=== PATIENT | female | born 1935 | race Caucasian/White ===

== ENCOUNTER 2019-07-08 11:39 | Outpatient (CLI) | payer MEDICARE, OTHER, SELFPAY ==
--- NOTE | 2019-07-11 06:57 | ONC FU_ITS ---
Dr. Bowers Patient Follow-Up Note Patient: Isela Marina Unit #: [id number]: 1935 Dicatated By: Dakota Bowers M.D.Date of Visit:July 08, 2019 Onc Med Follow-up/Prog Note Chief Complaint: Breast cancer. 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 She had presented in 2011 with a palpable mass in the central portion of the left breast. Incisional biopsy on 01/15/2012 showed grade 2 invasive ductal carcinoma. It was reported to be ER and DE positive. HER-2/raghavendra was non-amplified with an amplification ratio by FISH of 1.17. She underwent partial mastectomy, left axillary sentinel lymph node biopsy and additional axillary lymph node sampling on 01/29/2012. Pathology showed grade 2 invasive ductal carcinoma with focal ductal carcinoma in situ. The tumor measured 4.4 cm in greatest dimension. Tumor was noted to invade the dermis but not epidermis. There was macroscopic involvement in 2/2 sentinel lymph nodes but without extracapsular extension. There was no involvement in an additional 6 axillary lymph nodes. Her Oncotype DX score was 19. Adjuvant chemotherapy was not given. She did complete radiation to the left breast in February 2012. She then began adjuvant hormonal therapy with letrozole. She had continued regular followup with her surgeon and with her medical oncologist prior to moving here from [place]. I had seen here initially on 02/08/2016. At that time she had multiple complaints including fatigue and increasing musculoskeletal pain. I had suspected that at least some of those symptoms were related to the letrozole, and I did advise her to stop taking it, at least temporarily. I had then seen her for a followup visit on 03/06/2015. At that time she reported some improvement in her musculoskeletal pain, but she continued to have fatigue and she also complained of increased shortness of breath. She was advised to continue holding the letrozole, and she was scheduled for further evaluation with a ventilation/perfusion lung scan, as she had a reported IV contrast allergy. The lung scan showed intermediate probability of pulmonary embolus. At that time she was on warfarin due to a prior history of pulmonary emboli in 2001. Her anticoagulation was then transitioned to apixaban. As her musculoskeletal pain had improved after stopping the letrozole, she was recommended to start treatment with exemestane 25 mg daily. She received the medication, but for some reason she decided to restart the letrozole instead. In the meantime, her diagnostic left mammogram and ultrasound on 07/31/2016 showed evidence of a new soft tissue skin thickening in the inferior medial left breast. Ultrasound also showed soft tissue thickening along the 9 to 10:00 axis of the left breast near the scar from the prior lumpectomy. The thickening measures up to 4.7 mm. The findings were BI-RADS 4B, moderate suspicion for malignancy. Biopsy was recommended. She underwent left breast lumpectomy on 08/16/2016. Pathology was benign. She subsequently did start the exemestane, but she stopped it within a month or so because of side effects, mainly a skin eruption and itching. Following her office visit on 11/09/2016, she did agree to restart the exemestane 25 mg daily. She has not continued it until April 2018, at which point she had completed 5 years of adjuvant hormonal therapy. Her medical illnesses, in addition to breast cancer and pulmonary emboli, include hypertension, hyperlipidemia, type II diabetes, GERD, fibromyalgia, osteoporosis, and macular degeneration. She is on CPAP for obstructive sleep apnea. She also has anxiety/depression. She has had multiple skin cancers excised. She is a nonsmoker. INTERIM HISTORY: She is seen for a scheduled visit. She has not been feeling is good generally. She says she has slowed down and has not been as active. At least some of that is due to the restrictions imposed by the coronavirus pandemic. She is still the primary caregiver for her , and she does her housework. ECOG score is 1. She has been watching her diet because of her diabetes. Her weight, though, is up a few pounds. She has not had fever, night sweats, or hot flashes. Her breathing is generally good. She does get short of breath going up stairs. She does not complain of cough, and she has not been having chest pain. She says her stomach is occasionally queasy. She has constipation, which she manages adequately with Metamucil and docusate. She has increasing problems with bladder incontinence. She has pain in her left knee and she also has having joint pain in her thumbs and ankles. She has some pain in the left chest wall, which tends to be positional. She has burning and hurting in her legs at night, she also complains of having tingling in her feet. She does not complain of headache. She sometimes has vertigo. Medications: Acetaminophen 2 (500 mg) Tablet Oral PRN, Cholecalciferol 1 (1000 Units) Tablet Oral daily, Claritin 1 (10 mg) Capsule Oral daily, Colace (100 mg) Capsule Oral daily, DiltiaZEM HCl ER 1 (60 mg) Capsule SR 12 HR Oral b.i.d., Eliquis 1 (5 mg) Tablet Oral b.i.d., Flonase 2 (50 mcg/act) Suspension Nasal daily PRN, HydrALAZINE HCl 1 (100 mg) Tablet Oral t.i.d., HydroCHLOROthiazide 1 (25 mg) Tablet Oral daily, Klor-Con 10 1 (10 meq) Tablet, controlled release Oral b.i.d., Magnesium 1 Tablet Oral at bedtime, Meclizine HCl Tablet Oral PRN, Naphcon-A 2 Solution Ophthalmic b.i.d., Ocuvite 1 Tablet Oral daily Allergies: Cats, Diovan, Dust mites, Fenofibrate, Fish Oil, Floxin Otic, Gabapentin, Hydrocodone-Acetaminophen, Ibuprofen, Iodine, Lipitor, Pravastatin Sodium, Simvastatin, Statins, and Tolectin. 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 Appetite is OK. She is trying to watch her diet for the diabetes. Her weight is up a few pounds. No fever, chills, hot flashes, or night sweats. ECOG score is 1, ENMT - She was treated for a sinus infection in February. No mouth sores. No sore throat or difficulty swallowing, Hematologic/Lymphatic - No abnormal bruising or bleeding, Respiratory - She wears a CPAP at night. She has shortness of breath going up stairs. No cough. No pleuritic pain or hemoptysis, Cardiovascular - No angina pain. No palpitations, Gastrointestinal - She occasinally feels queasy. She sometimes has heartburn. She has constipation, adequately managed with Metamucil and docusate. No blood in the stool or black stools, Genitourinary (F) - She has urinary frequency and she is having more incontinence. No dysuria or hematuria, Musculoskeletal - She has pain in her left knee. She also has pain in her thumbs and in her ankles. She has some pain in the left chest wall which tends to be positional, Integumentary - No skin complications, Neurologic - No headache. She sometimes has vertigo. She has numbness and burning in her legs and feet, Psychiatric - She has some anxiety/depresssion. She has some difficulty sleeping. Vital Signs: Performed on July 08, 2019 10:58 Height - 63.00 in Weight - 192 lbs (HIGH) BSA - 1.90 sq.m BMI - 34.01 (HIGH) Temperature - 97.8 F (LOW) Pulse - 89 /min Respiration - 19 /min BP - 132/68 mm(hg) O2 Sat - 97 % Pain - 2 Physical Examination: Constitutional - She appears somewhat weak generally, and she has limited mobility, Eyes - Sclerae nonicteric. Conjunctivae clear, ENMT - No lesions noted in the oral cavity, Hematologic/Lymphatic - No cervical or clavicular adenopathy, Respiratory - Lungs sound clear, Cardiovascular - Heart rhythm is regular. There is a II/ systolic murmur. There is no gallop or rub noted, Breasts - She has had a partial left mastectomy. There are no breast masses noted. There is no axillary adenopathy, Abdomen - Soft. Liver and spleen are not enlarged. There is no abdominal mass or ascites noted and there is no inguinal adenopathy, Extremities - No edema. Pedal pulses are palpable bilaterally, Integumentary - There are multiple actinic lesions on the forearms, Neurologic - No focal neurologic deficits noted. Lab/Imaging: Test performed on July 08, 2019 09:52 Glucose 130 mg/dL BUN 20 mg/dL Creatinine 0.85 mg/dL Cr Clearance (Est) 67.74 mL/min Sodium 142 mmol/L Potassium 4.1 mmol/L Chloride 101 mmol/L CO2 30 mmol/L Calcium 10.8 mg/dL Protein, Total 7.2 g/dL Albumin 4.2 g/dL Bilirubin, Total 0.3 mg/dL Alkaline Phosphatase 94 IU/L AST (SGOT) 15 IU/L ALT (SGPT) 13 IU/L Impression: 1. Patient with grade 2 invasive ductal carcinoma involving the central aspect of the left breast, stage IIB (pT2, pN1a, M0), ER/DE positive and HER-2/raghavendra negative. Oncotype DX score 19. 2. Her treatment included left partial mastectomy and axillary lymph node sampling on 01/29/2012 followed by radiation to the left breast, which she completed in February 2012. 3. She began adjuvant hormonal therapy with letrozole following completion of radiation. It was stopped in January 2016 due to increasing musculoskeletal pain and fatigue. Her other medical illnesses include: 4. Hypertension. 5. Hyperlipidemia. 6. Type II diabetes. 7. GERD. 8. Fibromyalgia. 9. Osteoporosis. 10. Macular degeneration. 11. Obstructive sleep apnea. 12. She has required treatment for multiple skin cancers. 13. She has a history of multiple pulmonary emboli in 2001. During subsequent followup she had improvement in her musculoskeletal pain after stopping letrozole. She had initially continued to have significant fatigue and shortness of breath. She was evaluated with a ventilation/perfusion lung scan in February 2016, and that study showed intermediate probability of pulmonary embolus. She had a therapeutic INR on warfarin, and at that point her anticoagulation was transitioned to apixaban 5 mg bid. She had improvement in her musculoskeletal pain after stopping letrozole. Her surveillance mammogram/ultrasound of left breast on 07/31/2016 was BI-RADS 4b, moderate suspicion for malignancy. She underwent left breast lumpectomy on 08/16/2016. Pathology was benign. She then began a trial hormonal therapy with exemestane 25 mg daily. She stopped within a month or so due to side effects, mainly a skin eruption and itching. She did agree to restart the exemestane following her office visit in October 2016. She had subsequently been able to tolerate the exemestane with acceptable toxicity. I did have her stop taking it in April 2018, at which point she had completed 5 years of adjuvant hormonal therapy. Since then she has been showing some decline in her performance status. 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 There has, however, but no evidence of recurrence of the breast cancer, and she has had no evidence of any further thromboembolism. Plan: She continues on observation/expectant management for the breast cancer. Due to her having had a partial mastectomy, she is in need of post mastectomy bras and prosthesis. She is overdue on her surveillance mammogram, and that also will be scheduled. I will see her again in 1 year. Signed By: Dakota Bowers M.D. <<Signature on File>>
== END 2019-07-08 11:40 | disposition home or self-care (01) ==
LOC: ONCMED 11:40
PROVIDERS: PCP Family Medicine; Visit Provider Internal Medicine Medical Oncology
DX: Z08 Encounter for follow-up examination after completed treatment for malignant neoplasm (principal); Z85.3 Personal history of malignant neoplasm of breast; Z90.12 Acquired absence of left breast and nipple; Z92.23 Personal history of estrogen therapy; Z86.711 Personal history of pulmonary embolism; Z79.01 Long term (current) use of anticoagulants; Z85.828 Personal history of other malignant neoplasm of skin; I10 Essential (primary) hypertension; E78.5 Hyperlipidemia, unspecified; E11.9 Type 2 diabetes mellitus without complications; K21.9 Gastro-esophageal reflux disease without esophagitis; M79.7 Fibromyalgia; M81.0 Age-related osteoporosis without current pathological fracture; G47.33 Obstructive sleep apnea (adult) (pediatric); H35.30 Unspecified macular degeneration
CPT/HCPCS: 99214

== ENCOUNTER 2019-07-22 10:26 | Outpatient (CLI) | payer MEDICARE, OTHER, SELFPAY ==
--- NOTE | 2019-07-22 10:32 | MM_ITS ---
WS: [id number] DIAGNOSTIC BILATERAL DIGITAL MAMMOGRAM WITH CAD HISTORY: HX OF BREAST CA COMPARISON: 06/06/2018 and 01/31/2017 TECHNIQUE: Bilateral craniocaudad, mediolateral oblique, and mediolateral views are submitted. Comput er aided detection utilized. Breast composition: There are scattered areas of fibroglandular density. Numerous calcifications thro ughout the anterior LEFT breast have increased over time. There is a cluster of calcifications in the medial inferior LEFT breast which needs further evaluation. Some of the calcifications within the br east are benign in appearance as they are rodlike. Cluster of calcifications near 5:00 are more pleom orphic. These could be dystrophic calcifications as they are close to the prior surgical site. RIGHT breast is negative. LEFT BREAST: Magnification views of suspicious calcification CC and MLO. True ML. MM/[place] [id number] IMPRESSION: BI-RADS: 0-Incomplete: Need additional imaging evaluation FOLLOW UP: Need Additional Imaging
== END 2019-07-22 10:27 | disposition home or self-care (01) ==
LOC: RADSHAW 10:30
PROVIDERS: PCP Family Medicine; Visit Provider Family Medicine
DX: Z85.3 Personal history of malignant neoplasm of breast (principal); R92.1 Mammographic calcification found on diagnostic imaging of breast
CPT/HCPCS: 77066

== ENCOUNTER 2019-08-05 09:18 | Outpatient (CLI) | payer MEDICARE, OTHER, SELFPAY ==
--- NOTE | 2019-08-05 09:32 | MM_ITS ---
WS: [id number] LEFT DIGITAL MAMMOGRAPHY WITH CAD CLINICAL INFORMATION: LT BREAST CALCIFICATION HISTORY: History of left breast cancer with radiation and lumpectomy. COMPARISON: July 22, 2019 TECHNIQUE: 3 views of the left breast were obtained. FINDINGS: Scattered fibroglandular densities of the left breast. Prior postoperative changes inferior medial le ft breast with lumpectomy and radiation therapy. Again seen are the increasing calcifications along t he prior lumpectomy site. Calcifications have an amorphous and heterogeneous appearance and have sign ificantly increased since June 06, 2018. Some of the calcifications are likely due to postoperative changes with fat necrosis however others are pleomorphic in appearance and indeterminant. Recommend f urther evaluation with ultrasound-guided biopsy. Secretory calcifications. Vascular calcifications. Stable punctate and lucent centered calcifications . Stable biopsy clip. MM/[place] [id number] IMPRESSION: BI-RADS: 4B-Suspicious: Intermediate FOLLOW UP: Stereotactic Biopsy Recommended
== END 2019-08-05 09:19 | disposition home or self-care (01) ==
LOC: ONCMED 09:26
PROVIDERS: PCP Family Medicine; Visit Provider Internal Medicine Medical Oncology
DX: R92.1 Mammographic calcification found on diagnostic imaging of breast (principal)
CPT/HCPCS: 77065

== ENCOUNTER 2019-08-13 12:05 | Outpatient (CLI) | payer MEDICARE, OTHER, SELFPAY ==
--- NOTE | 2019-08-13 12:15 | MM_ITS ---
WS: [id number] ULTRASOUND-GUIDED LEFT BREAST BIOPSY HISTORY: New LEFT breast calcifications at the postsurgical lumpectomy site. COMPARISON: 06/06/2018, 08/05/2019, 07/22/2019, 06/06/2018 and 01/31/2017. Examination was initially attempted by stereotactic biopsy. Due to patient's kyphotic condition these calcifications were not identifiable. Ultrasound was able to localize calcifications in the location of the abnormality and will be attempted. Procedure, risks and complications are explained to the patient. Medications are reviewed. Consent is obtained. The calcifications in the LEFT breast are localized with ultrasound. Skin is cleansed with ChloraPrep and anesthetized with 1% buffered lidocaine. Small dermatome is made. Under sterile conditions the s ite of the calcifications is biopsied with a 14-gauge Achieve needle. Multiple core biopsies are perf ormed. Material placed in formalin and sent to pathology for review. No complications encountered. Breast tissue marker (Bard ultrasound enhanced ribbon): Single. Patient left the radiology suite with no complications. Patient is instructed to return to [facility] or [facility] with any concerns. Post mammographic imaging to evaluate placement of the clip was obtained. The clip is within the area of the concerning calcifications. MM/[place] [id number] IMPRESSION: 1. Uncomplicated core needle biopsy calcifications LEFT breast which are new. PATHOLOGY: Fat necrosis with microcalcifications. No malignancy. RECOMMENDATION: Diagnostic LEFT mammogram 6 months.
[2019-08-13 13:10] LABS: INR 0.95 (0.8-1.2)
--- NOTE | 2019-08-13 13:42 | US_ITS ---
WS: [id number] ULTRASOUND-GUIDED LEFT BREAST BIOPSY HISTORY: New LEFT breast calcifications at the postsurgical lumpectomy site. COMPARISON: 06/06/2018, 08/05/2019, 07/22/2019, 06/06/2018 and 01/31/2017. Examination was initially attempted by stereotactic biopsy. Due to patient's kyphotic condition these calcifications were not identifiable. Ultrasound was able to localize calcifications in the location of the abnormality and will be attempted. Procedure, risks and complications are explained to the patient. Medications are reviewed. Consent is obtained. The calcifications in the LEFT breast are localized with ultrasound. Skin is cleansed with ChloraPrep and anesthetized with 1% buffered lidocaine. Small dermatome is made. Under sterile conditions the s ite of the calcifications is biopsied with a 14-gauge Achieve needle. Multiple core biopsies are perf ormed. Material placed in formalin and sent to pathology for review. No complications encountered. Breast tissue marker (Bard ultrasound enhanced ribbon): Single. Patient left the radiology suite with no complications. Patient is instructed to return to [facility] or [facility] with any concerns. Post mammographic imaging to evaluate placement of the clip was obtained. The clip is within the area of the concerning calcifications. US/US breast LT limited* [id number] IMPRESSION: 1. Uncomplicated core needle biopsy calcifications LEFT breast which are new. PATHOLOGY: Fat necrosis with microcalcifications. No malignancy. RECOMMENDATION: Diagnostic LEFT mammogram 6 months.
--- NOTE | 2019-08-13 14:07 | US_ITS ---
WS: [id number] ULTRASOUND-GUIDED LEFT BREAST BIOPSY HISTORY: New LEFT breast calcifications at the postsurgical lumpectomy site. COMPARISON: 06/06/2018, 08/05/2019, 07/22/2019, 06/06/2018 and 01/31/2017. Examination was initially attempted by stereotactic biopsy. Due to patient's kyphotic condition these calcifications were not identifiable. Ultrasound was able to localize calcifications in the location of the abnormality and will be attempted. Procedure, risks and complications are explained to the patient. Medications are reviewed. Consent is obtained. The calcifications in the LEFT breast are localized with ultrasound. Skin is cleansed with ChloraPrep and anesthetized with 1% buffered lidocaine. Small dermatome is made. Under sterile conditions the s ite of the calcifications is biopsied with a 14-gauge Achieve needle. Multiple core biopsies are perf ormed. Material placed in formalin and sent to pathology for review. No complications encountered. Breast tissue marker (Bard ultrasound enhanced ribbon): Single. Patient left the radiology suite with no complications. Patient is instructed to return to [facility] or [facility] with any concerns. Post mammographic imaging to evaluate placement of the clip was obtained. The clip is within the area of the concerning calcifications. US/[place] [id number] IMPRESSION: 1. Uncomplicated core needle biopsy calcifications LEFT breast which are new. PATHOLOGY: Fat necrosis with microcalcifications. No malignancy. RECOMMENDATION: Diagnostic LEFT mammogram 6 months.
== END 2019-08-13 12:06 | disposition home or self-care (01) ==
LOC: RADSHAW 12:15 → ONCMED 12:28
PROVIDERS: PCP Family Medicine; Visit Provider Internal Medicine Medical Oncology
DX: N64.1 Fat necrosis of breast (principal); Z85.3 Personal history of malignant neoplasm of breast; R92.0 Mammographic microcalcification found on diagnostic imaging of breast; R92.1 Mammographic calcification found on diagnostic imaging of breast; N63.20 Unspecified lump in the left breast, unspecified quadrant
CPT/HCPCS: 19083; 36415; 76642; 77065; 85610; 88305; J2001

== ENCOUNTER 2019-09-08 09:49 | Outpatient (CLI) | payer MEDICARE, OTHER, SELFPAY ==
--- NOTE | 2019-09-08 19:04 | ONC FU_ITS ---
Dr. Bowers Patient Follow-Up Note Patient: Isela Marina Unit #: [id number]: 1935 Dicatated By: Dakota Bowers M.D.Date of Visit:Sep 08, 2019 Onc Med Follow-up/Prog Note Chief Complaint: Breast cancer. 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 She had presented in 2011 with a palpable mass in the central portion of the left breast. Incisional biopsy on 01/15/2012 showed grade 2 invasive ductal carcinoma. It was reported to be ER and [place] positive. HER-2/raghavendra was non-amplified with an amplification ratio by FISH of 1.17. She underwent partial mastectomy, left axillary sentinel lymph node biopsy and additional axillary lymph node sampling on 01/29/2012. Pathology showed grade 2 invasive ductal carcinoma with focal ductal carcinoma in situ. The tumor measured 4.4 cm in greatest dimension. Tumor was noted to invade the dermis but not epidermis. There was macroscopic involvement in 2/2 sentinel lymph nodes but without extracapsular extension. There was no involvement in an additional 6 axillary lymph nodes. Her Oncotype DX score was 19. Adjuvant chemotherapy was not given. She did complete radiation to the left breast in February 2012. She then began adjuvant hormonal therapy with letrozole. She had continued regular followup with her surgeon and with her medical oncologist prior to moving here from [place]. I had seen here initially on 02/08/2016. At that time she had multiple complaints including fatigue and increasing musculoskeletal pain. I had suspected that at least some of those symptoms were related to the letrozole, and I did advise her to stop taking it, at least temporarily. I had then seen her for a followup visit on 03/06/2015. At that time she reported some improvement in her musculoskeletal pain, but she continued to have fatigue and she also complained of increased shortness of breath. She was advised to continue holding the letrozole, and she was scheduled for further evaluation with a ventilation/perfusion lung scan, as she had a reported IV contrast allergy. The lung scan showed intermediate probability of pulmonary embolus. At that time she was on warfarin due to a prior history of pulmonary emboli in 2001. Her anticoagulation was then transitioned to apixaban. As her musculoskeletal pain had improved after stopping the letrozole, she was recommended to start treatment with exemestane 25 mg daily. She received the medication, but for some reason she decided to restart the letrozole instead. In the meantime, her diagnostic left mammogram and ultrasound on 07/31/2016 showed evidence of a new soft tissue skin thickening in the inferior medial left breast. Ultrasound also showed soft tissue thickening along the 9 to 10:00 axis of the left breast near the scar from the prior lumpectomy. The thickening measures up to 4.7 mm. The findings were BI-RADS 4B, moderate suspicion for malignancy. Biopsy was recommended. She underwent left breast lumpectomy on 08/16/2016. Pathology was benign. She subsequently did start the exemestane, but she stopped it within a month or so because of side effects, mainly a skin eruption and itching. Following her office visit on 11/09/2016, she did agree to restart the exemestane 25 mg daily. She has not continued it until April 2018, at which point she had completed 5 years of adjuvant hormonal therapy. Her medical illnesses, in addition to breast cancer and pulmonary emboli, include hypertension, hyperlipidemia, type II diabetes, GERD, fibromyalgia, osteoporosis, and macular degeneration. She is on CPAP for obstructive sleep apnea. She also has anxiety/depression. She has had multiple skin cancers excised. She is a nonsmoker. INTERIM HISTORY: As of her follow-up visit on 07/08/2019 she appeared stable clinically with no evidence of recurrence of the breast cancer. Her yearly diagnostic mammogram on 07/22/2019 showed numerous calcifications throughout the anterior left breast which are noted to have increased over time. It was felt that a cluster of calcifications in the medial inferior left breast required further evaluation. She ultimately underwent ultrasound directed needle biopsy of that area on 08/13/2019. Pathology showed fat necrosis with microcalcifications but no malignancy identified. However, the radiologist indicated that it was a difficult procedure and that she was not confident that the biopsy result was an accurate reflection of the actual pathology in the breast. She has since then been seen by Dr. Gaston and she is considering the possibility of having a surgical biopsy. She complains that she is more tired, but she is still trying to do everything on her own, including maintaining her household and taking care of her . Her ECOG score is 1. Appetite is still okay. She does not have fever or night sweats. She says she had another fall on 20 August. It was associated with an episode of vertigo , which has been an ongoing problem for her for years, though she has atypical manifestations with it. She said she hit her head twice and also hurt her shoulders and back. Her pain is better now, so that she did not appear to have sustained any significant injury. She still complains of having pain occasionally in the area under her left breast, and that tends to be positional and has also been an ongoing problem for her. Medications: Acetaminophen 2 (500 mg) Tablet Oral PRN, Cholecalciferol 1 (1000 Units) Tablet Oral daily, Claritin 1 (10 mg) Capsule Oral daily, Colace (100 mg) Capsule Oral daily, DiltiaZEM HCl ER 1 (60 mg) Capsule SR 12 HR Oral b.i.d., Eliquis 1 (5 mg) Tablet Oral b.i.d., Flonase 2 (50 mcg/act) Suspension Nasal daily PRN, HydrALAZINE HCl 1 (100 mg) Tablet Oral t.i.d., HydroCHLOROthiazide 1 Tablet (of 12.5 mg) Oral daily, Klor-Con 10 1 (10 meq) Tablet, controlled release Oral b.i.d., Magnesium 1 Tablet Oral at bedtime, Meclizine HCl Tablet Oral PRN, Naphcon-A 2 Solution Ophthalmic b.i.d., Ocuvite 1 Tablet Oral daily Allergies: Cats, Diovan, Dust mites, Fenofibrate, Fish Oil, Floxin Otic, Gabapentin, Hydrocodone-Acetaminophen, Ibuprofen, Iodine, Lipitor, Pravastatin Sodium, Simvastatin, Statins, and Tolectin. Review of Systems: Constitutional - She is feeling really tired. 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 Her appetite is good and weight is stable. No fever, night sweats, or hot flashes. ECOG score is 1, ENMT - She has sinus congestion/drainage. No mouth sores. No sore throat or difficulty swallowing, Hematologic/Lymphatic - She bruises easily, Respiratory - No shortness of breath. No cough. No pleuritic pain or hemoptysis, Cardiovascular - No angina pain. No palpitations, Gastrointestinal - No nausea or vomiting. No heartburn or acid reflux. No diarrhea or constipation. No blood in the stool or black stools, Genitourinary (F) - No dysuria or hematuria. No urinary frequency. No urgency. She has incontinence, Musculoskeletal - She continues to have intermittent pain to her left rib area, Integumentary - No skin complications, Neurologic - No headaches. She is having increased difficulty with vertigo. She is very off balance and has had multiple falls. She has numbness and tingling in her feet, Psychiatric - She has some anxiety. No depression. No insomnia. Vital Signs: Performed on Sep 08, 2019 10:05 Height - 63.00 in Weight - 192.4 lbs (HIGH) BSA - 1.90 sq.m BMI - 34.08 (HIGH) Temperature - 98.3 F (LOW) Pulse - 70 /min Respiration - 24 /min BP - 143/69 mm(hg) (HIGH) O2 Sat - 96 % Pain - 0 Physical Examination: Constitutional - She has limited mobility, Eyes - Sclerae nonicteric. Conjunctivae clear, ENMT - No lesions noted in the oral cavity, Hematologic/Lymphatic - No cervical or clavicular adenopathy, Respiratory - Lungs sound clear, Cardiovascular - Heart rhythm is regular. There is a II/ systolic murmur. There is no gallop or rub noted, Breasts - She has had a partial left mastectomy. There are no breast masses noted. There is no axillary adenopathy, Abdomen - Soft. Liver and spleen are not enlarged. There is no abdominal mass or ascites noted and there is no inguinal adenopathy, Extremities - No edema. Pedal pulses are palpable bilaterally, Neurologic - No focal neurologic deficits noted. Lab/Imaging: Test performed on Aug 13, 2019 12:53 PT 12.90 SECONDS INR 0.95 Test performed on July 08, 2019 09:52 Glucose 130 mg/dL BUN 20 mg/dL Creatinine 0.85 mg/dL Cr Clearance (Est) 67.74 mL/min Sodium 142 mmol/L Potassium 4.1 mmol/L Chloride 101 mmol/L CO2 30 mmol/L Calcium 10.8 mg/dL Protein, Total 7.2 g/dL Albumin 4.2 g/dL Bilirubin, Total 0.3 mg/dL Alkaline Phosphatase 94 IU/L AST (SGOT) 15 IU/L ALT (SGPT) 13 IU/L WBC 6.3 10^9/L RBC 4.43 10^12/L HGB 13.1 g/dL HCT 40.7 % MCV 91.9 fl MCH 29.6 pg MCHC 32.2 g/dL RDW 13.8 % Platelet Count 205 10^9/L MPV 10.2 fL Neutrophils (Gran) 4.77 10^9/L Lymphocytes 0.819 10^9/L Monocytes 0.567 10^9/L Eosinophils 0.126 10^9/L Basophils 0.063 10^9/L Impression: 1. Patient with grade 2 invasive ductal carcinoma involving the central aspect of the left breast, stage IIB (pT2, pN1a, M0), ER/[place] positive and HER-2/raghavendra negative. Oncotype DX score 19. 2. Her treatment included left partial mastectomy and axillary lymph node sampling on 01/29/2012 followed by radiation to the left breast, which she completed in February 2012. 3. She began adjuvant hormonal therapy with letrozole following completion of radiation. It was stopped in January 2016 due to increasing musculoskeletal pain and fatigue. Her other medical illnesses include: 4. Hypertension. 5. Hyperlipidemia. 6. Type II diabetes. 7. GERD. 8. Fibromyalgia. 9. Osteoporosis. 10. Macular degeneration. 11. Obstructive sleep apnea. 12. She has required treatment for multiple skin cancers. 13. She has a history of multiple pulmonary emboli in 2001. During subsequent followup she had improvement in her musculoskeletal pain after stopping letrozole. She had initially continued to have significant fatigue and shortness of breath. She was evaluated with a ventilation/perfusion lung scan in February 2016, and that study showed intermediate probability of pulmonary embolus. She had a therapeutic INR on warfarin, and at that point her anticoagulation was transitioned to apixaban 5 mg bid. She had improvement in her musculoskeletal pain after stopping letrozole. Her surveillance mammogram/ultrasound of left breast on 07/31/2016 was BI-RADS 4b, moderate suspicion for malignancy. She underwent left breast lumpectomy on 08/16/2016. Pathology was benign. She then began a trial hormonal therapy with exemestane 25 mg daily. She stopped within a month or so due to side effects, mainly a skin eruption and itching. She did agree to restart the exemestane following her office visit in October 2016. She had subsequently been able to tolerate the exemestane with acceptable toxicity. I did have her stop taking it in April 2018, at which point she had completed 5 years of adjuvant hormonal therapy. During follow-up there has been some gradual decline in her performance status. Thus far there is been no documented recurrence of breast cancer or any further thromboembolism. Her yearly diagnostic mammogram in July, though, did show increased calcifications in the anterior left breast, felt to be somewhat suspicious. Ultrasound-guided needle biopsy on 08/13/2019 showed fat necrosis with microcalcifications and no malignancy identified. However, it was a technically difficult procedure, and the radiologist was not confident that the biopsy was an accurate reflection of the pathology in the breast. Plan: In the context of her other medical illnesses and overall condition, I think it is reasonable to defer the biopsy for now and just schedule a 6-month interval diagnostic mammogram. If the changes are progressive, she can proceed then to surgical biopsy. She is aware that any recurrence of cancer in the left breast will mandate a mastectomy. In the meantime, I will make sure there is an order in place for postmastectomy bras, as she has had a previous partial mastectomy. Signed By: Dakota Bowers M.D. <<Signature on File>>
== END 2019-09-08 09:50 | disposition home or self-care (01) ==
LOC: ONCMED 09:55
PROVIDERS: PCP Family Medicine; Visit Provider Internal Medicine Medical Oncology
DX: Z08 Encounter for follow-up examination after completed treatment for malignant neoplasm (principal); Z85.3 Personal history of malignant neoplasm of breast; R92.1 Mammographic calcification found on diagnostic imaging of breast; Z92.23 Personal history of estrogen therapy; Z90.12 Acquired absence of left breast and nipple; I10 Essential (primary) hypertension; E78.5 Hyperlipidemia, unspecified; E11.9 Type 2 diabetes mellitus without complications; K21.9 Gastro-esophageal reflux disease without esophagitis; M79.7 Fibromyalgia; M81.0 Age-related osteoporosis without current pathological fracture; H35.30 Unspecified macular degeneration; G47.33 Obstructive sleep apnea (adult) (pediatric); Z85.828 Personal history of other malignant neoplasm of skin; Z86.711 Personal history of pulmonary embolism; Z79.01 Long term (current) use of anticoagulants
CPT/HCPCS: 99214

== ENCOUNTER → 2019-10-06 13:54 | Outpatient (BNVA) | payer MEDICARE, OTHER, SELFPAY | PROVIDERS: PCP Family Medicine; Referring Provider Internal Medicine Medical Oncology; Visit Provider Dermatology | DX: D48.9 Neoplasm of uncertain behavior, unspecified (principal); L21.9 Seborrheic dermatitis, unspecified; S30.861A Insect bite (nonvenomous) of abdominal wall, initial encounter; L30.4 Erythema intertrigo; Z85.828 Personal history of other malignant neoplasm of skin; L57.0 Actinic keratosis; L81.4 Other melanin hyperpigmentation; L72.0 Epidermal cyst; X58.XXXA Exposure to other specified factors, initial encounter | CPT/HCPCS: 11102; 17004; 88304; 88305; 99204 ==

== ENCOUNTER → 2019-11-17 08:52 | Outpatient (BNVA) | payer MEDICARE, OTHER, SELFPAY | PROVIDERS: PCP Family Medicine; Visit Provider Dermatology | DX: C44.319 Basal cell carcinoma of skin of other parts of face (principal) | CPT/HCPCS: 14040; 17311; 17312 ==

== ENCOUNTER 2020-01-28 10:24 | Outpatient (CLI) | payer MEDICARE, OTHER, SELFPAY ==
--- NOTE | 2020-01-28 10:29 | MM_ITS ---
WS: [id number] LEFT DIGITAL MAMMOGRAPHY WITH CAD CLINICAL INFORMATION: 6 MO F/U; HX OF BREAST CA COMPARISON: August 13, 2019 TECHNIQUE: 4 views of the left breast were obtained. FINDINGS: Scattered fibroglandular densities of the left breast. Postoperative changes left breast lumpectomy. Secretory and punctate calcifications. Lucent centered calcifications. Fat necrosis. Calcifications a re unchanged from previous. Stable biopsy clips. No new findings. MM/[place] [id number] IMPRESSION: BI-RADS: 2-Benign FOLLOW UP: 1 Year Follow-up Recommend return to annual diagnostic mammography.
--- NOTE | 2020-01-31 11:57 | ONC FU_ITS ---
Dr. Bowers Patient Follow-Up Note Patient: Isela Marina Unit #: [id number]: [id number] Dicatated By: Dakota Bowers M.D.Date of Visit:Jan 28, 2020 Onc Med Follow-up/Prog Note Chief Complaint: Breast cancer. History of Present Illness: This is an 84 year-old woman with grade 2 invasive ductal carcinoma of the left breast, stage IIB (pT2, pN1a, M0), ER/OK positive and HER-2/raghavendra negative. She had presented in 2011 with a palpable mass in the central portion of the left breast. Incisional biopsy on 01/15/2012 showed grade 2 invasive ductal carcinoma. It was reported to be ER and [place] positive. HER-2/raghavendra was non-amplified with an amplification ratio by FISH of 1.17. She underwent partial mastectomy, left axillary sentinel lymph node biopsy and additional axillary lymph node sampling on 01/29/2012. Pathology showed grade 2 invasive ductal carcinoma with focal ductal carcinoma in situ. The tumor measured 4.4 cm in greatest dimension. Tumor was noted to invade the dermis but not epidermis. There was macroscopic involvement in 2/2 sentinel lymph nodes but without extracapsular extension. There was no involvement in an additional 6 axillary lymph nodes. Her Oncotype DX score was 19. Adjuvant chemotherapy was not given. She did complete radiation to the left breast in February 2012. She then began adjuvant hormonal therapy with letrozole. She had continued regular followup with her surgeon and with her medical oncologist prior to moving here from [place]. I had seen here initially on 02/08/2016. At that time she had multiple complaints including fatigue and increasing musculoskeletal pain. I had suspected that at least some of those symptoms were related to the letrozole, and I did advise her to stop taking it, at least temporarily. I had then seen her for a followup visit on 03/06/2015. At that time she reported some improvement in her musculoskeletal pain, but she continued to have fatigue and she also complained of increased shortness of breath. She was advised to continue holding the letrozole, and she was scheduled for further evaluation with a ventilation/perfusion lung scan, as she had a reported IV contrast allergy. The lung scan showed intermediate probability of pulmonary embolus. At that time she was on warfarin due to a prior history of pulmonary emboli in 2001. Her anticoagulation was then transitioned to apixaban. As her musculoskeletal pain had improved after stopping the letrozole, she was recommended to start treatment with exemestane 25 mg daily. She received the medication, but for some reason she decided to restart the letrozole instead. In the meantime, her diagnostic left mammogram and ultrasound on 07/31/2016 showed evidence of a new soft tissue skin thickening in the inferior medial left breast. Ultrasound also showed soft tissue thickening along the 9 to 10:00 axis of the left breast near the scar from the prior lumpectomy. The thickening measures up to 4.7 mm. The findings were BI-RADS 4B, moderate suspicion for malignancy. Biopsy was recommended. She underwent left breast lumpectomy on 08/16/2016. Pathology was benign. She subsequently did start the exemestane, but she stopped it within a month or so because of side effects, mainly a skin eruption and itching. Following her office visit on 11/09/2016, she did agree to restart the exemestane 25 mg daily. She has not continued it until April 2018, at which point she had completed 5 years of adjuvant hormonal therapy. Her medical illnesses, in addition to breast cancer and pulmonary emboli, include hypertension, hyperlipidemia, type II diabetes, GERD, fibromyalgia, osteoporosis, and macular degeneration. She is on CPAP for obstructive sleep apnea. She also has anxiety/depression. She has had multiple skin cancers excised. She is a nonsmoker. INTERIM HISTORY: As of her follow-up visit on 07/08/2019 she appeared stable clinically with no evidence of recurrence of the breast cancer. Her yearly diagnostic mammogram on 07/22/2019 showed numerous calcifications throughout the anterior left breast which are noted to have increased over time. It was felt that a cluster of calcifications in the medial inferior left breast required further evaluation. She ultimately underwent ultrasound directed needle biopsy of that area on 08/13/2019. Pathology showed fat necrosis with microcalcifications but no malignancy identified. However, the radiologist indicated that it was a difficult procedure and that she was not confident that the biopsy result was an accurate reflection of the actual pathology in the breast. She was seen by Dr. Gaston but she ultimately opted against having a surgical biopsy. She is seen for a follow-up visit. She has not been feeling as good generally. She has had spells of vertigo or dizziness, described as a cloudy feeling in her head. She says it happens when she does not eat soon enough. Her energy has been pretty low and she has been less active. ECOG score is 2. She has good appetite. She has no fever, night sweats, or hot flashes. She has no shortness of breath, cough, or chest pain. She sometimes has acid reflux. Her constipation is adequately managed with docusate and prunes. She has some urinary frequency and urgency and she occasionally has incontinence. She has pain in her left knee and she also has pain in her neck and shoulders. She has burning in her feet. Medications: Acetaminophen 2 (500 mg) Tablet Oral PRN, Cholecalciferol 1 (1000 Units) Tablet Oral daily, Claritin 1 (10 mg) Capsule Oral daily, Colace (100 mg) Capsule Oral daily, DiltiaZEM HCl ER 1 (60 mg) Capsule SR 12 HR Oral b.i.d., Eliquis 1 (5 mg) Tablet Oral b.i.d., Flonase 2 (50 mcg/act) Suspension Nasal daily PRN, HydrALAZINE HCl 1 (100 mg) Tablet Oral t.i.d., HydroCHLOROthiazide 1 Tablet (of 12.5 mg) Oral daily, Klor-Con 10 1 (10 meq) Tablet, controlled release Oral b.i.d., Magnesium 1 Tablet Oral at bedtime, Meclizine HCl Tablet Oral PRN, Naphcon-A 2 Solution Ophthalmic b.i.d., Ocuvite 1 Tablet Oral daily Allergies: Cats, Diovan, Dust mites, Fenofibrate, Fish Oil, Floxin Otic, Gabapentin, Hydrocodone-Acetaminophen, Ibuprofen, Iodine, Lipitor, Pravastatin Sodium, Simvastatin, Statins, and Tolectin. Review of Systems: Constitutional - Her energy is been pretty low and she has been less active. She is doing only a little bit of housework. Appetite is good and weight is stable. No fever, night sweats, or hot flashes. ECOG score is 2, ENMT - No sinus congestion/drainage. No mouth sores. No sore throat or difficulty swallowing, Hematologic/Lymphatic - No abnormal bruising or bleeding, Respiratory - No shortness of breath. No cough. No pleuritic pain or hemoptysis, Cardiovascular - No angina pain. No palpitations, Gastrointestinal - No nausea or vomiting. She sometimes has acid reflux. Her constipation is adequately managed with docusate and prunes. No blood in the stool or black stools, Genitourinary (F) - No dysuria or hematuria. She has urinary frequency and urgency and sometimes incontinence, Musculoskeletal - She has pain in her left knee and in her neck and shoulders, Integumentary - No skin rash, Neurologic - No headache. She has some dizziness. She has burning in her feet. No other focal neurologic symptoms, Psychiatric - No anxiety or depression. No insomnia. Vital Signs: Performed on Jan 28, 2020 11:27 Height - 63.00 in Weight - 191.0 lbs (LOW) BSA - 1.90 sq.m BMI - 33.83 (HIGH) Temperature - 98.6 F Pulse - 70 /min Respiration - 24 /min BP - 140/76 mm(hg) O2 Sat - 97 % Pain - 0 Physical Examination: Constitutional - She appears somewhat weak generally, Eyes - Sclerae nonicteric. Conjunctivae clear, ENMT - No lesions noted in the oral cavity, Hematologic/Lymphatic - No cervical, clavicular, or axillary adenopathy, Respiratory - Lungs sound clear, Cardiovascular - Heart rhythm is regular. There is a II/ systolic murmur. There is no gallop or rub noted, Abdomen - Soft. Liver and spleen are not enlarged. There is no abdominal mass or ascites noted and there is no inguinal adenopathy, Extremities - No edema, Neurologic - No focal neurologic deficits noted. Impression: 1. Patient with grade 2 invasive ductal carcinoma involving the central aspect of the left breast, stage IIB (pT2, pN1a, M0), ER/OK positive and HER-2/raghavendra negative. Oncotype DX score 19. 2. Her treatment included left partial mastectomy and axillary lymph node sampling on 01/29/2012 followed by radiation to the left breast, which she completed in February 2012. 3. She began adjuvant hormonal therapy with letrozole following completion of radiation. It was stopped in January 2016 due to increasing musculoskeletal pain and fatigue. Her other medical illnesses include: 4. Hypertension. 5. Hyperlipidemia. 6. Type II diabetes. 7. GERD. 8. Fibromyalgia. 9. Osteoporosis. 10. Macular degeneration. 11. Obstructive sleep apnea. 12. She has required treatment for multiple skin cancers. 13. She has a history of multiple pulmonary emboli in 2001. During subsequent followup she had improvement in her musculoskeletal pain after stopping letrozole. She had initially continued to have significant fatigue and shortness of breath. She was evaluated with a ventilation/perfusion lung scan in February 2016, and that study showed intermediate probability of pulmonary embolus. She had a therapeutic INR on warfarin, and at that point her anticoagulation was transitioned to apixaban 5 mg bid. She had improvement in her musculoskeletal pain after stopping letrozole. Her surveillance mammogram/ultrasound of left breast on 07/31/2016 was BI-RADS 4b, moderate suspicion for malignancy. She underwent left breast lumpectomy on 08/16/2016. Pathology was benign. She then began a trial hormonal therapy with exemestane 25 mg daily. She stopped within a month or so due to side effects, mainly a skin eruption and itching. She did agree to restart the exemestane following her office visit in October 2016. She had subsequently been able to tolerate the exemestane with acceptable toxicity. I did have her stop taking it in April 2018, at which point she had completed 5 years of adjuvant hormonal therapy. During follow-up she has experienced some gradual decline in her performance status, but there has been no recurrence of breast cancer and she has had no further thromboembolism. Plan: She remains on observation/expectant management. She will be scheduled for a follow-up visit with diagnostic mammogram in 1 year. In the meantime, she is still in need of a partial mastectomy prosthesis and bras. Signed By: Dakota Bowers M.D. <<Signature on File>>
== END 2020-01-28 10:25 | disposition home or self-care (01) ==
LOC: RADSHAW 10:28 → ONCMED 10:36
PROVIDERS: PCP Family Medicine; Visit Provider Internal Medicine Medical Oncology
DX: Z08 Encounter for follow-up examination after completed treatment for malignant neoplasm (principal); Z85.3 Personal history of malignant neoplasm of breast; Z90.12 Acquired absence of left breast and nipple; Z92.23 Personal history of estrogen therapy; Z92.3 Personal history of irradiation
CPT/HCPCS: 77065; G0463

== ENCOUNTER 2020-09-07 10:00 | Outpatient (CLI) | payer MEDICARE, OTHER, SELFPAY ==
--- NOTE | 2020-09-20 07:34 | ONC FU_ITS ---
Dr. Bowers Patient Follow-Up Note Patient: Isela Marina Unit #: [id number]: 1935 Dicatated By: Dkaota Bowers M.D.Date of Visit:Sep 07, 2020 Onc Med Follow-up/Prog Note Chief Complaint: Breast cancer. 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 She had presented in 2011 with a palpable mass in the central portion of the left breast. Incisional biopsy on 01/15/2012 showed grade 2 invasive ductal carcinoma. It was reported to be ER and UT positive. HER-2/raghavendra was non-amplified with an amplification ratio by FISH of 1.17. She underwent partial mastectomy, left axillary sentinel lymph node biopsy and additional axillary lymph node sampling on 01/29/2012. Pathology showed grade 2 invasive ductal carcinoma with focal ductal carcinoma in situ. The tumor measured 4.4 cm in greatest dimension. Tumor was noted to invade the dermis but not epidermis. There was macroscopic involvement in 2/2 sentinel lymph nodes but without extracapsular extension. There was no involvement in an additional 6 axillary lymph nodes. Her Oncotype DX score was 19. Adjuvant chemotherapy was not given. She did complete radiation to the left breast in February 2012. She then began adjuvant hormonal therapy with letrozole. She had continued regular followup with her surgeon and with her medical oncologist prior to moving here from [place]. I had seen here initially on 02/08/2016. At that time she had multiple complaints including fatigue and increasing musculoskeletal pain. I had suspected that at least some of those symptoms were related to the letrozole, and I did advise her to stop taking it, at least temporarily. I had then seen her for a followup visit on 03/06/2015. At that time she reported some improvement in her musculoskeletal pain, but she continued to have fatigue and she also complained of increased shortness of breath. She was advised to continue holding the letrozole, and she was scheduled for further evaluation with a ventilation/perfusion lung scan, as she had a reported IV contrast allergy. The lung scan showed intermediate probability of pulmonary embolus. At that time she was on warfarin due to a prior history of pulmonary emboli in 2001. Her anticoagulation was then transitioned to apixaban. As her musculoskeletal pain had improved after stopping the letrozole, she was recommended to start treatment with exemestane 25 mg daily. She received the medication, but for some reason she decided to restart the letrozole instead. In the meantime, her diagnostic left mammogram and ultrasound on 07/31/2016 showed evidence of a new soft tissue skin thickening in the inferior medial left breast. Ultrasound also showed soft tissue thickening along the 9 to 10:00 axis of the left breast near the scar from the prior lumpectomy. The thickening measures up to 4.7 mm. The findings were BI-RADS 4B, moderate suspicion for malignancy. Biopsy was recommended. She underwent left breast lumpectomy on 08/16/2016. Pathology was benign. She subsequently did start the exemestane, but she stopped it within a month or so because of side effects, mainly a skin eruption and itching. Following her office visit on 11/09/2016, she did agree to restart the exemestane 25 mg daily. She has not continued it until April 2018, at which point she had completed 5 years of adjuvant hormonal therapy. Her medical illnesses, in addition to breast cancer and pulmonary emboli, include hypertension, hyperlipidemia, type II diabetes, GERD, fibromyalgia, osteoporosis, and macular degeneration. She is on CPAP for obstructive sleep apnea. She also has anxiety/depression. She has had multiple skin cancers excised. She is a nonsmoker. INTERIM HISTORY: As of her follow-up visit on 07/08/2019 she appeared stable clinically with no evidence of recurrence of the breast cancer. Her yearly diagnostic mammogram on 07/22/2019 showed numerous calcifications throughout the anterior left breast which are noted to have increased over time. It was felt that a cluster of calcifications in the medial inferior left breast required further evaluation. She ultimately underwent ultrasound directed needle biopsy of that area on 08/13/2019. Pathology showed fat necrosis with microcalcifications but no malignancy identified. However, the radiologist indicated that it was a difficult procedure and that she was not confident that the biopsy result was an accurate reflection of the actual pathology in the breast. She was seen by Dr. Gaston but she ultimately opted against having a surgical biopsy. Her follow-up mammogram in January 2020 showed benign findings and she was recommended to return to yearly screening. She is seen for a follow-up visit. She has been feeling okay, though she does complain of increasing joint pain, mainly in her knees and hips but also sometimes in her hands and arms. She also has had some ongoing problems with vertigo, and she is now taking meclizine on a regular basis. She has limited activity, but she is still doing housework and some gardening. ECOG score is 1. She has good appetite. She would like to try and lose weight. She does not have fever, night sweats, or hot flashes. She has some chronic sinus symptoms. She is using Flonase. She has an occasional tickle in her throat. She says her breathing is pretty steady . She does not complain of chest pain. She has been having more heartburn lately. Bowel function remains adequate with docusate and prunes. She has ongoing problems with bladder incontinence. She does not complain of headache. She does report having burning in both feet. Medications: Acetaminophen 2 (500 mg) Tablet Oral PRN, Claritin 1 (10 mg) Capsule Oral daily, Colace (100 mg) Capsule Oral daily, DiltiaZEM HCl ER 1 (60 mg) Capsule SR 12 HR Oral b.i.d., Eliquis 1 (5 mg) Tablet Oral b.i.d., Flonase 2 (50 mcg/act) Suspension Nasal daily PRN, HydrALAZINE HCl 1 (100 mg) Tablet Oral t.i.d., HydroCHLOROthiazide 1 Tablet (of 12.5 mg) Oral daily, Klor-Con 10 1 (10 meq) Tablet, controlled release Oral b.i.d., Magnesium 1 Tablet Oral at bedtime, Meclizine HCl Tablet Oral PRN, Naphcon-A 2 Solution Ophthalmic b.i.d., Ocuvite 1 Tablet Oral daily, Triamcinolone Acetonide Ointment Topical Allergies: Cats, Diovan, Dust mites, Fenofibrate, Fish Oil, Floxin Otic, Gabapentin, Hydrocodone-Acetaminophen, Ibuprofen, Iodine, Lipitor, Pravastatin Sodium, Simvastatin, Statins, and Tolectin. Vital Signs: Performed on Sep 07, 2020 10:15 Height - 63.00 in Weight - 191 lbs BSA - 1.90 sq.m BMI - 33.83 (HIGH) Temperature - 98.5 F Pulse - 93 /min Respiration - 18 /min BP - 122/58 mm(hg) O2 Sat - 96 % Pain - 0 Physical Examination: Constitutional - She appears somewhat weak generally, and she has limited mobility, Eyes - Sclerae nonicteric. Conjunctivae clear, ENMT - No lesions noted in the oral cavity, Hematologic/Lymphatic - No cervical, clavicular, or axillary adenopathy, Respiratory - Lungs sound clear, Cardiovascular - Heart rhythm is regular. There is a II/ systolic murmur. There is no gallop or rub noted, Abdomen - Moderately distended. Liver and spleen are not enlarged. There is no abdominal mass or ascites noted and there is no inguinal adenopathy, Extremities - No edema, Neurologic - She has a mild tremor. There are no focal neurologic deficits noted. Problem List: 1. Grade 2 invasive ductal carcinoma involving the central aspect of the left breast, stage IIB (pT2, pN1a, M0), ER/UT positive and HER-2/raghavendra negative. 2. Hypertension. 3. Hyperlipidemia. 4. Type II diabetes. 5. GERD. 6. Fibromyalgia. 7. Osteoporosis. 8. Macular degeneration. 9. Obstructive sleep apnea. 10. She has required treatment for multiple skin cancers. 11. She has a history of multiple pulmonary emboli in 2001. Problems Addressed with this Encounter and Plan: 1. Patient with grade 2 invasive ductal carcinoma involving the central aspect of the left breast, stage IIB (pT2, pN1a, M0), ER/UT positive and HER-2/raghavendra negative. Oncotype DX score 19. Her treatment included left partial mastectomy and axillary lymph node sampling on 01/29/2012 followed by radiation to the left breast, which she completed in February 2012. She began adjuvant hormonal therapy with letrozole following completion of radiation. It was stopped in January 2016 due to increasing musculoskeletal pain and fatigue. She continued to have significant fatigue and shortness of breath. She was evaluated with a ventilation/perfusion lung scan in February 2016, and that study showed intermediate probability of pulmonary embolus. She had a therapeutic INR on warfarin, and at that point her anticoagulation was transitioned to apixaban 5 mg bid. She had improvement in her musculoskeletal pain after stopping letrozole. Her surveillance mammogram/ultrasound of left breast on 07/31/2016 was BI-RADS 4b, moderate suspicion for malignancy. She underwent left breast lumpectomy on 08/16/2016. Pathology was benign. She then began a trial hormonal therapy with exemestane 25 mg daily. She stopped within a month or so due to side effects, mainly a skin eruption and itching. She did agree to restart the exemestane following her office visit in October 2016. She had subsequently been able to tolerate the exemestane with acceptable toxicity. I did have her stop taking it in April 2018, at which point she had completed 5 years of adjuvant hormonal therapy During follow-up she has had increasing joint pain and she has had some gradual decline in performance status. Thus far there has been no evidence of recurrence of her breast cancer. She continues on observation/expectant management. She will be scheduled for her yearly diagnostic mammogram in January. She will continue regular follow-up with Dr. Frank. I will see her again in 6 months. 2. She is having more frequent heartburn. She will be given a prescription for famotidine 20 mg daily. Signed By: Dakota Bowers M.D. <<Signature on File>>
== END 2020-09-07 10:01 | disposition home or self-care (01) ==
LOC: ONCMED 09-08 07:16
PROVIDERS: PCP Family Medicine; Visit Provider Internal Medicine Medical Oncology
DX: Z08 Encounter for follow-up examination after completed treatment for malignant neoplasm (principal); Z85.3 Personal history of malignant neoplasm of breast; Z85.828 Personal history of other malignant neoplasm of skin; I10 Essential (primary) hypertension; E78.5 Hyperlipidemia, unspecified; E11.9 Type 2 diabetes mellitus without complications; K21.9 Gastro-esophageal reflux disease without esophagitis; M81.0 Age-related osteoporosis without current pathological fracture; H35.30 Unspecified macular degeneration; G47.33 Obstructive sleep apnea (adult) (pediatric); Z90.12 Acquired absence of left breast and nipple; Z92.3 Personal history of irradiation; Z86.711 Personal history of pulmonary embolism; Z79.01 Long term (current) use of anticoagulants; R12 Heartburn; Z79.899 Other long term (current) drug therapy
CPT/HCPCS: 99214

== ENCOUNTER 2021-03-03 11:11 | Outpatient (CLI) | payer MEDICARE, OTHER, SELFPAY ==
--- NOTE | 2021-03-03 11:20 | MM_ITS ---
WS: [id number] BILATERAL DIGITAL DIAGNOSTIC MAMMOGRAM MAMMOGRAPHY WITH CAD CLINICAL INFORMATION: HX OF BREAST CA COMPARISON: January 28, 2020 and July 24, 2019 TECHNIQUE: Bilateral CC, MLO, and ML views. FINDINGS: Scattered fibroglandular densities bilaterally. Vascular calcification. Postoperative changes left br east lumpectomy. Secretory and punctate calcifications. Fat necrosis with Dystrophic calcifications l eft breast have progressed. This area was previously biopsied. Two biopsy clips left breast. No suspicious focal mass, asymmetry, calcifications, or architectural distortion. No evidence of ildefonso gnancy. MM/[place] [id number] IMPRESSION: BI-RADS: 2-Benign FOLLOW UP: 1 Year Follow-up Recommend return to annual diagnostic mammography.
== END 2021-03-03 11:12 | disposition home or self-care (01) ==
LOC: RADSHAW 11:18
PROVIDERS: PCP Family Medicine; Visit Provider Internal Medicine Medical Oncology
DX: Z85.3 Personal history of malignant neoplasm of breast (principal)
CPT/HCPCS: 77066

== ENCOUNTER 2021-05-11 12:58 | Outpatient (CLI) | payer MEDICARE, OTHER, SELFPAY ==
--- NOTE | 2021-05-15 11:26 | ONC FU_ITS ---
Dr. Bowers Patient Follow-Up Note Patient: Isela Marina Unit #: [id number]: 1935 Dicatated By: Dakota Bowers M.D.Date of Visit:May 11, 2021 Onc Med Follow-up/Prog Note Chief Complaint: Breast cancer/basal cell skin cancer. History of Present Illness: This is an 86 year-old woman with a history of grade 2 invasive ductal carcinoma of the left breast, stage IIA (pT2, pN1a, M0), ER/DC positive and HER-2/raghavendra negative. She is now being treated for locally advanced basal cell skin cancer. Her breast cancer was initially diagnosed in 2011. She had presented with a palpable mass in the central portion of the left breast. Incisional biopsy on 01/15/2012 showed grade 2 invasive ductal carcinoma. It was reported to be ER and DC positive. HER-2/raghavendra was non-amplified with an amplification ratio by FISH of 1.17. She underwent partial mastectomy, left axillary sentinel lymph node biopsy and additional axillary lymph node sampling on 01/29/2012. Pathology showed grade 2 invasive ductal carcinoma with focal ductal carcinoma in situ. The tumor measured 4.4 cm in greatest dimension. Tumor was noted to invade the dermis but not epidermis. There was macroscopic involvement in 2/2 sentinel lymph nodes but without extracapsular extension. There was no involvement in an additional 6 axillary lymph nodes. Her Oncotype DX score was 19. Adjuvant chemotherapy was not given. She did complete radiation to the left breast in February 2012. She then began adjuvant hormonal therapy with letrozole. She had continued regular followup with her surgeon and with her medical oncologist prior to moving here from [place]. I had seen here initially on 02/08/2016. At that time she had multiple complaints including fatigue and increasing musculoskeletal pain. I had suspected that at least some of those symptoms were related to the letrozole, and I did advise her to stop taking it, at least temporarily. I had then seen her for a followup visit on 03/06/2015. At that time she reported some improvement in her musculoskeletal pain, but she continued to have fatigue and she also complained of increased shortness of breath. She was advised to continue holding the letrozole, and she was scheduled for further evaluation with a ventilation/perfusion lung scan, as she had a reported IV contrast allergy. The lung scan showed intermediate probability of pulmonary embolus. At that time she was on warfarin due to a prior history of pulmonary emboli in 2001. Her anticoagulation was then transitioned to apixaban. She then restarted letrozole 2.5 mg daily. Her diagnostic left mammogram and ultrasound on 07/31/2016 showed evidence of a new soft tissue skin thickening in the inferior medial left breast. Ultrasound also showed soft tissue thickening along the 9 to 10:00 axis of the left breast near the scar from the prior lumpectomy. The thickening measures up to 4.7 mm. The findings were BI-RADS 4B, moderate suspicion for malignancy. Biopsy was recommended. She underwent left breast lumpectomy on 08/16/2016. Pathology was benign. She the began further adjuvant hormonal therapy with exemestane, but she stopped it within a month or so because of side effects, mainly a skin eruption and itching. Following her office visit on 11/09/2016, she did agree to restart the exemestane. She then continued it until April 2018, at which point she had completed 5 years of adjuvant hormonal therapy. As of her follow-up visit on 07/08/2019 she appeared stable clinically with no evidence of recurrence of the breast cancer. Her yearly diagnostic mammogram on 07/22/2019 showed numerous calcifications throughout the anterior left breast which are noted to have increased over time. It was felt that a cluster of calcifications in the medial inferior left breast required further evaluation. She ultimately underwent ultrasound directed needle biopsy of that area on 08/13/2019. Pathology showed fat necrosis with microcalcifications but no malignancy identified. However, the radiologist indicated that it was a difficult procedure and that she was not confident that the biopsy result was an accurate reflection of the actual pathology in the breast. She was seen by Dr. Gaston but she ultimately opted against having a surgical biopsy. Her follow-up mammogram in January 2020 showed benign findings and she was recommended to return to yearly screening. Her medical illnesses, in addition to breast cancer and pulmonary emboli, include hypertension, hyperlipidemia, type II diabetes, GERD, fibromyalgia, osteoporosis, and macular degeneration. She is on CPAP for obstructive sleep apnea. She also has anxiety/depression. She has had multiple skin cancers excised. She is a nonsmoker. INTERIM HISTORY: In September 2019 she had been seen by Dr. Lehman with complaints of an itchy lesion on her mid forehead. She then underwent Mohs surgery for nodular basal cell carcinoma. During follow-up she was found to have a nodular basal cell carcinoma on the right forehead, for which she underwent Mohs surgery on 03/16/2021. She had subsequent Epicort application, but with persistent defect in the scalp. With that finding, she was recommended to have further treatment with vismodegib. She is seen for a follow-up visit. She has been feeling okay, though she does have limited activity tolerance. She says she has energy until about noon, during which time she is able to do some light work. ECOG score is 1. Her appetite has been okay. She has had intentional weight loss around 10 pounds. She does not have fever, night sweats, or hot flashes. She had been having chronic sinus symptoms, but that improved when she stopped using CPAP. She says her breathing is okay. She does not complain of shortness of breath, cough, or chest pain. She sometimes has acid reflux, though it has been pretty well managed with famotidine. Bowel function is somewhat variable, but adequate with MiraLAX. She has urinary frequency and urgency, and she has some associated incontinence. She has problems with her right knee, for which she has been taking tramadol. She sometimes has pain in her hips. She does not complain of headache. She is prone to having dizziness when she first gets up. She occasionally uses meclizine for vertigo. She has burning and tingling in her feet. Medications: Acetaminophen 2 (500 mg) Tablet Oral PRN, Colace (100 mg) Capsule Oral daily, DiltiaZEM HCl ER 1 (60 mg) Capsule SR 12 HR Oral b.i.d., Eliquis 1 (5 mg) Tablet Oral b.i.d., Famotidine 1 Tablet (of 40 mg) Oral b.i.d., HydrALAZINE HCl 1 (100 mg) Tablet Oral t.i.d., HydroCHLOROthiazide 1 Tablet (of 12.5 mg) Oral daily, Klor-Con 10 1 (10 meq) Tablet, controlled release Oral b.i.d., Meclizine HCl Tablet Oral PRN, Naphcon-A 2 Solution Ophthalmic b.i.d., predniSONE 1 Tablet (of 2.5 mg) Oral b.i.d., PreserVision AREDS Tablet Oral b.i.d., traMADol HCl 1 - 2 Tablet (of 50 mg) Oral q 8 hours PRN, Vitamin B Complex-C Capsule Oral daily, Vitamin D3 (25 mcg) Tablet Oral daily Allergies: Cats, Diovan, Dust mites, Fenofibrate, Fish Oil, Floxin Otic, Gabapentin, Hydrocodone-Acetaminophen, Ibuprofen, Iodine, Lipitor, Pravastatin Sodium, Simvastatin, Statins, and Tolectin. Vital Signs: Performed on May 11, 2021 14:18 Height - 63.00 in BP - 155/75 mm(hg) (HIGH) Performed on May 11, 2021 14:17 Height - 63.00 in Weight - 185.2 lbs (LOW) BSA - 1.87 sq.m BMI - 32.81 (HIGH) Temperature - 97.8 F (LOW) Pulse - 86 /min Respiration - 16 /min BP - 181/71 mm(hg) (HIGH) O2 Sat - 96 % Pain - 0 Fatigue - 6 Physical Examination: Constitutional - She has limited mobility. She otherwise looks pretty good generally, Eyes - Sclerae nonicteric. Conjunctivae clear, ENMT - No lesions noted in the oral cavity, Hematologic/Lymphatic - No cervical or clavicular adenopathy, Respiratory - Lungs sound clear, Cardiovascular - Heart rhythm is regular. There is a II/ systolic murmur. There is no gallop or rub noted, Breasts - There is a small nodule in the lower medial left breast. It would appear to be most likely fibrosis, but it is a little tender. There are no other breast masses noted. There is no axillary adenopathy, Abdomen - Moderately distended. Liver and spleen are not enlarged. There is no abdominal mass or ascites noted and there is no inguinal adenopathy, Extremities - No edema, Integumentary - There is a right parietal scalp skin lesion which measures 2 x 1 cm, Neurologic - She has a mild tremor. There are no focal neurologic deficits noted. Problem List: 1. Multiple skin cancers, including nodular basal cell carcinoma on the mid forehead, treated with Mohs surgery in 2019, and a nodular basal cell carcinoma on the right forehead treated with Mohs surgery in February 2021. 2. History of grade 2 invasive ductal carcinoma involving the central aspect of the left breast, stage IIB (pT2, pN1a, M0), ER/DC positive and HER-2/raghavendra negative. 3. Hypertension. 4. Hyperlipidemia. 5. Type II diabetes. 6. GERD. 7. Degenerative arthritis. 8. Fibromyalgia. 9. Osteoporosis. 10. Macular degeneration. 11. Obstructive sleep apnea.. 12. History of multiple pulmonary emboli. Problems Addressed with this Encounter and Plan: 1. Patient with multiple skin cancers, including nodular basal cell carcinoma on the mid forehead, treated with Mohs surgery in 2019, and a nodular basal cell carcinoma on the right forehead treated with Mohs surgery in February 2021. She has persistent scalp wound associated with recalcitrant basal cell cancer, and she has been recommended now to have treatment with vismodegib. It will be initiated at a standard dosage of 150 mg daily, subject to verification of insurance coverage. 2. She has a history grade 2 invasive ductal carcinoma involving the central aspect of the left breast, stage IIB (pT2, pN1a, M0), ER/DC positive and HER-2/raghavendra negative. Oncotype DX score 19. Her treatment included left partial mastectomy and axillary lymph node sampling on 01/29/2012 followed by radiation to the left breast, which she completed in February 2012. She completed adjuvant hormonal therapy in April 2018. Thus far during follow-up there has been no evidence of recurrence of the breast cancer. As she has had a partial mastectomy, she is in need of post mastectomy bras and prosthesis, which will be requested through HOME. 3. She has a history of multiple pulmonary emboli in 2001, and she had suspected pulmonary embolism again in 2016. She continues on anticoagulation with apixaban. Signed By: Dakota Bowers M.D. <<Signature on File>>
== END 2021-05-11 12:59 | disposition home or self-care (01) ==
LOC: ONCMED 13:04
PROVIDERS: PCP Family Medicine; Visit Provider Internal Medicine Medical Oncology
DX: C44.319 Basal cell carcinoma of skin of other parts of face (principal); Z85.3 Personal history of malignant neoplasm of breast; Z90.12 Acquired absence of left breast and nipple; I10 Essential (primary) hypertension; E78.5 Hyperlipidemia, unspecified; E11.9 Type 2 diabetes mellitus without complications; K21.9 Gastro-esophageal reflux disease without esophagitis; M19.90 Unspecified osteoarthritis, unspecified site; M79.7 Fibromyalgia; M81.0 Age-related osteoporosis without current pathological fracture; H35.30 Unspecified macular degeneration; G47.33 Obstructive sleep apnea (adult) (pediatric); Z86.711 Personal history of pulmonary embolism; Z79.01 Long term (current) use of anticoagulants; Z79.899 Other long term (current) drug therapy
CPT/HCPCS: 99215

== ENCOUNTER 2021-06-15 08:24 | Outpatient (CLI) | payer MEDICARE, OTHER, SELFPAY ==
[2021-06-15 10:24] LABS: Basophils # 0.1 10^3/uL (0.0-0.1); Basophils % 0.6 %; Eosinophils # 0.1 10^3/uL (0.0-0.8); Eosinophils % 0.7 %; Hemoglobin 13.7 g/dL (11.5-15.3); Lymphocytes # 0.5 10^3/uL (0.8-4.8); Lymphocytes % 5.6 %; Mean Corpuscular HGB Conc 31.9 g/dL (30.0-36.0); Mean Corpuscular Volume 94.1 fl (81-99); Mean Platelet Volume 11.4 fL (7.4-10.4); Monocytes # 0.6 10^3/uL (0.2-0.9); Monocytes % 5.7 %; Neutrophils # 8.46 10^3/uL (1.8-7.7); Neutrophils % 87.1 %; Nucleated Red Blood Cells % 0 %; Platelet Count 247 10^3/cmm (130-400); Red Blood Count 4.57 10^6/uL (4.1-5.3); Red Cell Distribution Width 14.9 % (12.1-15.1); White Blood Count 9.7 10^3/uL (4.0-10.0)
[2021-06-15 10:37] LABS: Alanine Aminotransferase 14 U/L (0-33); Albumin Level 4.2 g/dL (3.5-5.2); Alkaline Phosphatase 100 IU/L (35-105); Aspartate Amino Transferase 16 U/L (0-32); Blood Urea Nitrogen 18 mg/dL (8-23); Calcium 8.9 mg/dL (8.5-10.5); Carbon Dioxide 28 mmol/L (22-29); Chloride 98 mmol/L (98-107); Globulin 2.5 g/dL (1.3-4.6); Glucose 196 mg/dL (65-115); Osmolality Calculated 291 mOsm/kg (285-295); Sodium 137 mmol/L (136-145); Total Bilirubin 0.2 mg/dL (0.15-1.2); Total Protein 6.7 g/dL (6.6-8.7)
[2021-06-15 10:45] LABS: Anion Gap 14.3 (5-19); Potassium 3.3 mmol/L (3.5-5.1)
--- NOTE | 2021-06-15 12:03 | ONC FU_ITS ---
Karen Davis Progress Note Patient: Isela Marina Unit #: [id number]: 1935 Dicatated By: Karen Davis N.P.Date of Visit:Jun 15, 2021 Onc MED Follow-up/Prog Note Chief Complaint: Breast cancer/basal cell skin cancer. 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 She is now being treated for locally advanced basal cell skin cancer. Her breast cancer was initially diagnosed in 2011. She had presented with a palpable mass in the central portion of the left breast. Incisional biopsy on 01/15/2012 showed grade 2 invasive ductal carcinoma. It was reported to be ER and TN positive. HER-2/raghavendra was non-amplified with an amplification ratio by FISH of 1.17. She underwent partial mastectomy, left axillary sentinel lymph node biopsy and additional axillary lymph node sampling on 01/29/2012. Pathology showed grade 2 invasive ductal carcinoma with focal ductal carcinoma in situ. The tumor measured 4.4 cm in greatest dimension. Tumor was noted to invade the dermis but not epidermis. There was macroscopic involvement in 2/2 sentinel lymph nodes but without extracapsular extension. There was no involvement in an additional 6 axillary lymph nodes. Her Oncotype DX score was 19. Adjuvant chemotherapy was not given. She did complete radiation to the left breast in February 2012. She then began adjuvant hormonal therapy with letrozole. She had continued regular followup with her surgeon and with her medical oncologist prior to moving here from [place]. I had seen here initially on 02/08/2016. At that time she had multiple complaints including fatigue and increasing musculoskeletal pain. I had suspected that at least some of those symptoms were related to the letrozole, and I did advise her to stop taking it, at least temporarily. I had then seen her for a followup visit on 03/06/2015. At that time she reported some improvement in her musculoskeletal pain, but she continued to have fatigue and she also complained of increased shortness of breath. She was advised to continue holding the letrozole, and she was scheduled for further evaluation with a ventilation/perfusion lung scan, as she had a reported IV contrast allergy. The lung scan showed intermediate probability of pulmonary embolus. At that time she was on warfarin due to a prior history of pulmonary emboli in 2001. Her anticoagulation was then transitioned to apixaban. She then restarted letrozole 2.5 mg daily. Her diagnostic left mammogram and ultrasound on 07/31/2016 showed evidence of a new soft tissue skin thickening in the inferior medial left breast. Ultrasound also showed soft tissue thickening along the 9 to 10:00 axis of the left breast near the scar from the prior lumpectomy. The thickening measures up to 4.7 mm. The findings were BI-RADS 4B, moderate suspicion for malignancy. Biopsy was recommended. She underwent left breast lumpectomy on 08/16/2016. Pathology was benign. She the began further adjuvant hormonal therapy with exemestane, but she stopped it within a month or so because of side effects, mainly a skin eruption and itching. Following her office visit on 11/09/2016, she did agree to restart the exemestane. She then continued it until April 2018, at which point she had completed 5 years of adjuvant hormonal therapy. As of her follow-up visit on 07/08/2019 she appeared stable clinically with no evidence of recurrence of the breast cancer. Her yearly diagnostic mammogram on 07/22/2019 showed numerous calcifications throughout the anterior left breast which are noted to have increased over time. It was felt that a cluster of calcifications in the medial inferior left breast required further evaluation. She ultimately underwent ultrasound directed needle biopsy of that area on 08/13/2019. Pathology showed fat necrosis with microcalcifications but no malignancy identified. However, the radiologist indicated that it was a difficult procedure and that she was not confident that the biopsy result was an accurate reflection of the actual pathology in the breast. She was seen by Dr. Gaston but she ultimately opted against having a surgical biopsy. Her follow-up mammogram in January 2020 showed benign findings and she was recommended to return to yearly screening. Her medical illnesses, in addition to breast cancer and pulmonary emboli, include hypertension, hyperlipidemia, type II diabetes, GERD, fibromyalgia, osteoporosis, and macular degeneration. She is on CPAP for obstructive sleep apnea. She also has anxiety/depression. She has had multiple skin cancers excised. She is a nonsmoker. INTERIM HISTORY: In September 2019 she had been seen by Dr. Lehman with complaints of an itchy lesion on her mid forehead. She then underwent Mohs surgery for nodular basal cell carcinoma. During follow-up she was found to have a nodular basal cell carcinoma on the right forehead, for which she underwent Mohs surgery on 03/16/2021. She had subsequent Epicort application, but with persistent defect in the scalp. With that finding, she was recommended to have further treatment with vismodegib. Patient presents today for an education visit for vismodegib for her basal cell carcinoma. She states she has some mild fatigue. Her appetite has been good. She is a type II diabetic but does not take any medication for it. She is diet controlled. She had an hypoglycemic episode this morning and was given some juice and peanut butter and brant crackers. She is feeling a little better now. She denies sinus drainage or congestion. No shortness of breath, cough, chest pain she did quit using her CPAP because it was drying out her right eye and causing sinus pressure on the right side. She does have a follow-up appointment with sleep medicine. She denies nausea or vomiting. She has problems with constipation and she takes MiraLAX for that. She has some urinary incontinence. She has right knee pain which she takes tramadol for and that helps control the pain. She has a history of bilateral neuropathy in the lower extremities. Review Of Symptoms: See above. Past Medical History: Fibromyalgia Gastroesophageal reflux disease History of multiple pulmonary emboli in 2001 Hyperlipidemia Hypertension Macular degeneration Multiple skin cancers Obstructive sleep apnea Osteoporosis Type II diabetes Past Surgical History: Appendectomy Cholecystectomy Multiple skin cancer excisions including 4 on the face, 1 on the scalp, and 1 on the back Colonoscopy in 2015 Partial mastectomy with axillary sentinel lymph node biopsy and left axillary lymph node samping in 2011 Incisional biopsy of the left breast in 2011 Bilateral cataract excisons in 2006 Hemorrhoidectomy in 1969 Hysterectomy with bilateral salpingo-oophorectomy in 1966 Tonsillectomy in 1953 Allergies: Cats, Diovan, Dust mites, Fenofibrate, Fish Oil, Floxin Otic, Gabapentin, Hydrocodone-Acetaminophen, Ibuprofen, Iodine, Lipitor, Pravastatin Sodium, Simvastatin, Statins, and Tolectin. Medications: Acetaminophen 2 (500 mg) Tablet Oral PRN Colace (100 mg) Capsule Oral daily DiltiaZEM HCl ER 1 (60 mg) Capsule SR 12 HR Oral b.i.d. Eliquis 1 (5 mg) Tablet Oral b.i.d. Famotidine 1 Tablet (of 40 mg) Oral b.i.d. HydrALAZINE HCl 1 (100 mg) Tablet Oral t.i.d. HydroCHLOROthiazide 1 Tablet (of 12.5 mg) Oral daily Klor-Con 10 1 (10 meq) Tablet, controlled release Oral b.i.d. Meclizine HCl Tablet Oral PRN Naphcon-A 2 Solution Ophthalmic b.i.d. predniSONE 1 Tablet (of 2.5 mg) Oral b.i.d. PreserVision AREDS Tablet Oral b.i.d. traMADol HCl 1 - 2 Tablet (of 50 mg) Oral q 8 hours PRN Vitamin B Complex-C Capsule Oral daily Vitamin D3 (25 mcg) Tablet Oral daily Family History: Ms. Marina's mother at age 72: stroke diabetes hypertension. Ms. Marina's father at age 82: stroke hypertension. Ms. Marina has 3 brothers: 3 . Ms. Marina's first brother's heart attack. Another brother's bladder cancer. Another brother's pancreatic cancer. Both parents of stroke. Father at age 82 and mother at age 72. On brother of pancreatic cancer and one of bladder cancer/colon cancer. Another had colon and esophageal cancer. One brother of heart attack at age 55. A daughter with PKU at age 13. Social History: Ms. Marina is and she is retired. Ms. Marina has never smoked. She has no history of drinking. Ms. Marina reports the following support systems: lives with spouse, significant other, family, or friends, lives in own house, supportive family/friends willing to assist with needs, and adequate transportation available for expected visits. Her diet consists of regular meals. She indicates her activity level as: daily activities. She is a nonsmoker. She does not drink alcohol. Physical Examination: Performed on Jun 15, 2021 08:51: Height - 63.00 in, Temperature - 97.6 F (LOW), Pulse - 81 /min, Respiration - 17 /min, BP - 171/101 mm(hg) (HIGH), O2 Sat - 96 %, Pain - 0, and Fatigue - 5. Performance Status: 1 - No physically strenuous activity, but ambulatory and able to carry out light or sedentary work (e.g. office work, light house work). (ECOG) Constitutional Alert, cooperative, oriented. Mood and affect appropriate. Appears close to chronological age. Well nourished. Well developed. Head Normocephalic; no scars. Respiratory Lungs are clear to auscultation without rhonchi or wheezing. Cardiovascular Regular rate and rhythm of heart without murmurs, gallops or rubs. Abdomen Non-tender, non-distended, no masses, ascites or hepatosplenomegaly. Good bowel sounds. No guarding or rebound tenderness. Musculoskeletal No tenderness or swelling, normal range of motion without obvious weakness. Integumentary 1 cm scabbed area oin right side of scalp from previously treated basal cell carcinoma. Psychiatric Alert and oriented times three. Coherent speech. Verbalizes understanding of our discussions today. Laboratory: Test performed on Jun 15, 2021 10:00 Sodium 137 mmol/L Potassium 3.3 mmol/L Chloride 98 mmol/L CO2 28 mmol/L Anion Gap 14.3 BUN 18 mg/dL Creatinine 0.7 mg/dL Cr Clearance (Est) 76.5100 mL/min Glucose 196 mg/dL Osmolality - Calculated 291 mOsm/kg Calcium 8.9 mg/dL Protein, Total 6.7 g/dL Albumin 4.2 g/dL Globulin 2.5 g/dL Bilirubin, Total 0.2 mg/dL ALT (SGPT) 14 U/L AST (SGOT) 16 U/L Alkaline Phosphatase 100 IU/L WBC 9.7 10 3/uL RBC 4.57 10 6/uL HGB 13.7 g/dL HCT 43.0 % MCV 94.1 fl MCH 30.0 pg MCHC 31.9 g/dL RDW 14.9 % Platelet Count 247 10 3/cmm MPV 11.4 fL Neutrophils 8.46 10 3/uL Lymphocytes 0.5 10 3/uL Monocytes 0.6 10 3/uL Eosinophils 0.1 10 3/uL Basophils 0.1 10 3/uL Neutrophil % 87.1 % Lymphocyte % 5.6 % Monocyte % 5.7 % Eosinophil % 0.7 % Basophils % 0.6 % NRBC % 0 % Impression: 1. Multiple skin cancers, including nodular basal cell carcinoma on the mid forehead, treated with Mohs surgery in 2019, and a nodular basal cell carcinoma on the right forehead treated with Mohs surgery in February 2021. 2. History of grade 2 invasive ductal carcinoma involving the central aspect of the left breast, stage IIB (pT2, pN1a, M0), ER/TN positive and HER-2/raghavendra negative. 3. Hypertension. 4. Hyperlipidemia. 5. Type II diabetes. 6. GERD. 7. Degenerative arthritis. 8. Fibromyalgia. 9. Osteoporosis. 10. Macular degeneration. 11. Obstructive sleep apnea.. 12. History of multiple pulmonary emboli. Plan: 1. Patient with multiple skin cancers, including nodular basal cell carcinoma on the mid forehead, treated with Mohs surgery in 2019, and a nodular basal cell carcinoma on the right forehead treated with Mohs surgery in February 2021. She has persistent scalp wound associated with recalcitrant basal cell cancer, and she has been recommended now to have treatment with vismodegib. Education on vismodegib 150 mg daily was provided to the patient along with handouts. Side effects were discussed including muscle cramps, alopecia, fatigue, and diarrhea. She has not received the medication yet in the mail but she will call once she has received it and is starting it. She will follow-up in 3 weeks CBC and CMP. She experienced a hypoglycemic episode this morning after arriving at the clinic. She was given juice, brant crackers and peanut butter. She was feeling better. We discussed eating a bedtime snack in the evening to help prevent hypoglycemic episodes in the morning which is when she usually experiences these. Her glucose was checked and it was at 196 prior to leaving the clinic. 2. She has a history grade 2 invasive ductal carcinoma involving the central aspect of the left breast, stage IIB (pT2, pN1a, M0), ER/TN positive and HER-2/raghavendra negative. Oncotype DX score 19. Her treatment included left partial mastectomy and axillary lymph node sampling on 01/29/2012 followed by radiation to the left breast, which she completed in February 2012. She completed adjuvant hormonal therapy in April 2018. Thus far during follow-up there has been no evidence of recurrence of the breast cancer. 3. She has a history of multiple pulmonary emboli in 2001, and she had suspected pulmonary embolism again in 2016. She continues on anticoagulation with apixaban. Signed By: Karen Davis N.P. <<Signature on File>>
== END 2021-06-15 08:25 | disposition home or self-care (01) ==
PROVIDERS: PCP Family Medicine; Visit Provider Nurse Practitioner Family
DX: C44.310 Basal cell carcinoma of skin of unspecified parts of face (principal); Z85.3 Personal history of malignant neoplasm of breast; Z86.711 Personal history of pulmonary embolism; Z79.01 Long term (current) use of anticoagulants
CPT/HCPCS: 36415; 80053; 85025; 99214

== ENCOUNTER 2021-06-21 06:00 | Outpatient (RCR) | payer MEDICARE, OTHER, SELFPAY | END 2021-07-19 23:59 | disposition home or self-care (01) | LOC: WPT 06:00 | PROVIDERS: PCP Family Medicine; Referring Provider Nurse Practitioner Family; Visit Provider Nurse Practitioner Family | DX: R53.1 Weakness (principal); R26.81 Unsteadiness on feet | CPT/HCPCS: 97110; 97112; 97161; 97530 ==

== ENCOUNTER 2021-06-30 13:12 | Outpatient (CLI) | payer MEDICARE, OTHER, SELFPAY ==
--- NOTE | 2021-06-30 13:30 | USCV_ITS ---
Isela Marina Age: 86 Gender: F : 1935 Exam Date: 06/30/2021 14:04 Ordering Phys: Daylin Da Silva Technologist: GALO Exam Location: [facility] [place] Indication: fatigue/shortness of breath BP: 143 / 87 HR: 66 Rhythm: Sinus Technical Quality: Adequate MEASUREMENTS (Male / Female) Normal Values 2D ECHO LV Diastolic Diameter PLAX 3.9 cm 4.2 - 5.9 / 3.9 - 5.3 cm LV Systolic Diameter PLAX 2.7 cm IVS Diastolic Thickness 1.5 cm 0.6 - 1.0 / 0.6 - 0.9 cm IVS Systolic Thickness 1.9 cm LVPW Diastolic Thickness 1.3 cm 0.6 - 1.0 / 0.6 - 0.9 cm LVPW Systolic Thickness 1.5 cm LVOT Diameter 2.0 cm LV Ejection Fraction 2D Teich 57.0 % LV Ejection Fraction MOD 2C 57.1 % LV Ejection Fraction 2C AL 58.6 % LA Diameter 3.2 cm LA Width 3.2 cm LA Height 4.8 cm RA Width 3.1 cm RA Height 5.1 cm Aorta at Sinotubular Diameter 1.8 cm IVC Diameter 1.5 cm M-MODE Aortic Annulus Diameter 2.3 cm LA Ao Ratio MM 1.4 DOPPLER AV Peak Velocity 166.3 cm/s LVOT Peak Velocity 78.0 cm/s AV Area Cont Eq vti 1.9 cm squared AV Area Cont Eq pk 1.4 cm squared MV Peak Velocity 120.0 cm/s MV Area PHT 2.9 cm squared Mitral E to A Ratio 0.8 MV E' Velocity 46.5 cm/s Mitral E to MV E' Ratio 12.2 Mitral E to LV E' Lateral Ratio 12.5 Mitral E to LV E' Septal Ratio 11.8 TR Peak Velocity 267.1 cm/s TR Peak Gradient 28.5 mmHg TR Mean Velocity 219.9 cm/s TR Mean Gradient 21.9 mmHg TR Velocity Time Integral 90.7 cm TV Peak E Velocity 35.0 cm/s Right Atrial Pressure 3.0 mmHg Pulmonary Artery Systolic Pressu 31.5 mmHg PV Peak Velocity 97.0 cm/s RV Acceleration Time 0.1 s RV Ejection Time 0.3 s RV AcT/ET 0.3 FINDINGS Left Ventricle Normal left ventricular size. LV systolic function is normal with EF of 55-60%. No regional wall motion abnormalities. Grade 1 diastolic dysfunciton Right Ventricle The right ventricle is normal in size and function. Right Atrium The right atrium is normal in size. Left Atrium The left atrium is normal in size. Mitral Valve Structurally normal mitral valve without significant stenosis or prolapse. There is mild mitral regurgitation. Aortic Valve Thickened aortic valve without significant stenosis. There is no aortic regurgitation. Tricuspid Valve Structurally normal tricuspid valve without significant stenosis. Mild tricuspid regurgitation. Pulmonary artery systolic pressure is normal. Pulmonic Valve Structurally normal pulmonic valve without significant stenosis. There is trace pulmonic regurgitation. Pericardium Normal pericardium without effusion. Aorta Normal ascending aorta dimension. IVC CONCLUSIONS LV systolic function is EF 55 to 60%. Grade 1 diastolic dysfunction. Mild mitral regurgitation. Mild tricuspid regurgitation. Trace pulmonic regurgitation. No comparison studies are available. Hong Eduardo MD (Electronically Signed) Final Date: 07 Jul 2021 09:58 S
== END 2021-06-30 13:13 | disposition home or self-care (01) ==
LOC: RAD 13:13
PROVIDERS: PCP Family Medicine; Visit Provider Nurse Practitioner Family
DX: R06.02 Shortness of breath (principal); R53.83 Other fatigue; I50.30 Unspecified diastolic (congestive) heart failure; I34.0 Nonrheumatic mitral (valve) insufficiency; I07.1 Rheumatic tricuspid insufficiency; I37.1 Nonrheumatic pulmonary valve insufficiency
CPT/HCPCS: 93306

== ENCOUNTER 2021-07-20 06:00 | Outpatient (RCR) | payer MEDICARE, OTHER, SELFPAY | END 2021-08-18 23:59 | disposition home or self-care (01) | LOC: WPT 06:00 | PROVIDERS: PCP Family Medicine; Referring Provider Nurse Practitioner Family; Visit Provider Nurse Practitioner Family | DX: R26.89 Other abnormalities of gait and mobility (principal) | CPT/HCPCS: 97110; 97112; 97530 ==

== ENCOUNTER 2021-08-08 09:41 | Oncology outpatient (recurring) (ONCR) | payer MEDICARE, OTHER, SELFPAY | END 2021-08-18 23:59 | disposition home or self-care (01) | PROVIDERS: PCP Family Medicine; Visit Provider Nurse Practitioner Family | DX: C44.41 Basal cell carcinoma of skin of scalp and neck (principal); Z85.3 Personal history of malignant neoplasm of breast; R53.0 Neoplastic (malignant) related fatigue; L29.9 Pruritus, unspecified; R25.2 Cramp and spasm; T45.1X5A Adverse effect of antineoplastic and immunosuppressive drugs, initial encounter | CPT/HCPCS: 80053; 83735; 85025; 99214 ==

== ENCOUNTER 2021-08-19 06:00 | Outpatient (RCR) | payer MEDICARE, OTHER, SELFPAY | END 2021-09-18 23:59 | disposition home or self-care (01) | LOC: WPT 06:00 | PROVIDERS: PCP Family Medicine; Referring Provider Nurse Practitioner Family; Visit Provider Nurse Practitioner Family | DX: R26.89 Other abnormalities of gait and mobility (principal) | CPT/HCPCS: 97110; 97112; 97116 ==

== ENCOUNTER 2021-09-14 11:34 | Oncology outpatient (recurring) (ONCR) | payer MEDICARE, OTHER, SELFPAY | END 2021-09-18 23:59 | disposition home or self-care (01) | PROVIDERS: PCP Family Medicine; Visit Provider Nurse Practitioner Family | DX: C44.41 Basal cell carcinoma of skin of scalp and neck (principal); R53.83 Other fatigue; L29.8 Other pruritus; R25.2 Cramp and spasm; Z79.01 Long term (current) use of anticoagulants; Z79.899 Other long term (current) drug therapy; Z85.3 Personal history of malignant neoplasm of breast | CPT/HCPCS: 99204; 99214; 99215 ==

== ENCOUNTER 2021-09-19 06:00 | Outpatient (RCR) | payer MEDICARE, OTHER, SELFPAY | END 2021-10-19 23:59 | disposition home or self-care (01) | LOC: WPT 06:00 | PROVIDERS: PCP Family Medicine; Visit Provider Nurse Practitioner Family | DX: R26.89 Other abnormalities of gait and mobility (principal) | CPT/HCPCS: 97110 ==

== ENCOUNTER 2021-10-19 12:07 | Oncology outpatient (recurring) (ONCR) | payer MEDICARE, OTHER, SELFPAY | END 2021-10-19 23:59 | disposition home or self-care (01) | PROVIDERS: PCP Family Medicine; Visit Provider Internal Medicine Medical Oncology | DX: C44.41 Basal cell carcinoma of skin of scalp and neck (principal); R53.0 Neoplastic (malignant) related fatigue; L65.8 Other specified nonscarring hair loss; T45.1X5A Adverse effect of antineoplastic and immunosuppressive drugs, initial encounter; M79.18 Myalgia, other site; R25.2 Cramp and spasm; Z79.899 Other long term (current) drug therapy | CPT/HCPCS: 99214; 99215 ==

== ENCOUNTER 2022-01-25 13:24 | Oncology outpatient (recurring) (ONCR) | payer MEDICARE, OTHER, SELFPAY ==
[2022-01-25 13:39] LABS: Basophils % 0.4 %; Eosinophils # 0.1 10^3/uL (0.0-0.8); Eosinophils % 0.5 %; Lymphocytes # 0.9 10^3/uL (0.8-4.8); Lymphocytes % 10.1 %; Mean Corpuscular HGB Conc 31.7 g/dL (30.0-36.0); Mean Corpuscular Hemoglobin 30.4 pg (28.0-34.0); Mean Platelet Volume 10.4 fL (7.4-10.4); Monocytes # 0.5 10^3/uL (0.2-0.9); Monocytes % 5.6 %; Neutrophils % 83.1 %; Nucleated Red Blood Cells % 0 %; Platelet Count 238 10^3/cmm (130-400); Red Blood Count 4.27 10^6/uL (4.1-5.3); Red Cell Distribution Width 14.2 % (12.1-15.1); White Blood Count 9.2 10^3/uL (4.0-10.0)
[2022-01-25 14:04] LABS: Alanine Aminotransferase 14 U/L (0-33); Albumin Level 3.8 g/dL (3.5-5.2); Alkaline Phosphatase 92 U/L (35-105); Anion Gap 12.6 (5-19); Aspartate Amino Transferase 14 U/L (0-32); Blood Urea Nitrogen 16 mg/dL (8-23); Calcium 10.1 mg/dL (8.5-10.5); Carbon Dioxide 30 mmol/L (22-29); Chloride 98 mmol/L (98-107); Globulin 3.1 g/dL (1.3-4.6); Glucose 145 mg/dL (65-115); Osmolality Calculated 288 mOsm/kg (285-295); Potassium 3.6 mmol/L (3.5-5.1); Sodium 137 mmol/L (136-145); Total Bilirubin 0.2 mg/dL (0.15-1.2); Total Protein 6.9 g/dL (6.6-8.7)
== END 2022-02-18 23:59 | disposition home or self-care (01) ==
LOC: ONCMED 13:24
PROVIDERS: PCP Family Medicine; Visit Provider Internal Medicine Medical Oncology
DX: C44.41 Basal cell carcinoma of skin of scalp and neck (principal); R53.0 Neoplastic (malignant) related fatigue; L65.8 Other specified nonscarring hair loss; T45.1X5A Adverse effect of antineoplastic and immunosuppressive drugs, initial encounter; R25.2 Cramp and spasm; Z79.899 Other long term (current) drug therapy
CPT/HCPCS: 80053; 85025; 99214

== ENCOUNTER 2022-02-27 15:05 | Oncology outpatient (recurring) (ONCR) | payer MEDICARE, OTHER, SELFPAY | END 2022-03-21 23:59 | disposition home or self-care (01) | PROVIDERS: PCP Family Medicine; Visit Provider Internal Medicine Medical Oncology | DX: Z08 Encounter for follow-up examination after completed treatment for malignant neoplasm (principal); Z92.3 Personal history of irradiation; Z85.3 Personal history of malignant neoplasm of breast; Z85.820 Personal history of malignant melanoma of skin; Z86.711 Personal history of pulmonary embolism; Z79.01 Long term (current) use of anticoagulants | CPT/HCPCS: 99214 ==